=== PATIENT | female | born 1995 | race Caucasian/White ===

== ENCOUNTER 2018-07-23 14:25 | Inpatient (IN) | payer OTHER ==
[~2018-07-23 14:25] MED LIST: OXYTOCIN 30 UNITS/LR 500 ML BAG IV
[2018-07-23] MEDS ORDERED: MISOPROSTOL 200 MCG TAB PR ×3 (15:00→21:30)
[2018-07-23] MEDS ORDERED: LIDOCAINE 1% (MPF) 30 ML INJ INJ (15:00)
[2018-07-23] MEDS ORDERED: IBUPROFEN 600 MG TAB PO (15:00)
[2018-07-23] MEDS ORDERED: METHYLERGONOVINE 0.2 MG INJ IM ×3 (15:00→21:30)
[2018-07-23] MEDS ORDERED: CARBOPROST 250 MCG INJ IM ×3 (15:00→21:30)
[2018-07-23] MEDS ORDERED: OXYTOCIN 30 UNITS/LR 500 ML IV ×5 (15:00→21:30)
[2018-07-23] MEDS: MISOPROSTOL 50 MCG CAPSULE VAG (15:00)
[2018-07-23] MEDS: LACTATED RINGER'S 1,000 ML IV ×3 (16:02→22:49)
[2018-07-23] MEDS: OXYTOCIN 30 UNITS/LR 500 ML IV ×2 (16:27→21:19)
[2018-07-23 16:48] LABS: ADD MAN DIFF? NO
[2018-07-23 16:52] LABS: BASOPHILS % 0.2 % (0.0-2.0); EOSINOPHILS # 0.1 10^3/ul (0.0-0.5); EOSINOPHILS % 0.8 % (0.0-7.0); HEMOGLOBIN 11.7 g/dl (12.0-16.0); LYMPHOCYTES # 1.9 10^3/ul (0.8-2.9); LYMPHOCYTES % 20.1 % (15.0-51.0); MEAN CORPUSCULAR HEMOGLOBIN 32.3 pg (29.0-33.0); MEAN CORPUSCULAR HGB CONC 34.4 g/dl (32.0-37.0); MEAN CORPUSCULAR VOLUME 93.9 fl (82.0-101.0); MEAN PLATELET VOLUME 12.2 fl (7.4-10.4); MONOCYTE # 0.8 10^3/ul (0.3-0.9); MONOCYTES % 7.8 % (0.0-11.0); NEUTROPHIL # 6.8 10^3/ul (1.6-7.5); NEUTROPHILS % 70.8 % (39.0-77.0); PLATELET COUNT 189 10^3/UL (140-415); RED BLOOD COUNT 3.62 10^6/ul (4.20-5.40); RED CELL DISTRIBUTION WIDTH 12.7 % (11.5-14.5)
[2018-07-23 16:52] LABS: WHITE BLOOD COUNT 9.7 10^3/ul (4.8-10.8)
[2018-07-23 17:12] LABS: INR 0.89; PROTIME 12.1 Sec (11.9-14.9); PT RATIO 0.9
[2018-07-23 17:43] LABS: HEPATITIS B SURFACE ANTIGEN NEGATIVE (NEGATIVE)
[2018-07-23 18:15] LABS: AMPHETAMINE/METHAMPHETAMINE Negative (NEGATIVE); BARBITURATES Negative (NEGATIVE); BENZODIAZEPINES Negative (NEGATIVE); CANNABINOIDS Negative (NEGATIVE); COCAINE Negative (NEGATIVE); OPIATES Negative (NEGATIVE)
[2018-07-23] MEDS ORDERED: OXYTOCIN 10 UNIT INJ (20:04)
[2018-07-23] MEDS ORDERED: ONDANSETRON 4 MG INJ (20:04)
[2018-07-23] MEDS ORDERED: morphine SULFATE/PF (10 MG/10 ML) INJ (20:04)
[2018-07-23] MEDS ORDERED: LANOLIN HPA 1 PKT TOP (21:30)
[2018-07-23] MEDS ORDERED: DIPHENHYDRAMINE 50 MG INJ IV (21:30)
[2018-07-23] MEDS ORDERED: ONDANSETRON 4 MG INJ IV (21:30)
[2018-07-23] MEDS ORDERED: NALOXONE (0.4 MG/ML) INJ IV (21:30)
[2018-07-23] MEDS ORDERED: METHYLERGONOVINE 0.2 MG TAB PO (21:30)
[2018-07-23] MEDS: KETOROLAC 30 MG INJ IV (22:28)
[2018-07-23] MEDS: CEFAZOLIN 2 GM/50 ML (PMX) 50 ML IVPB (22:50)
[2018-07-23] MEDS: morphine 4 MG/ML VIAL IV (23:42)
[2018-07-24] MEDS: CEFAZOLIN 2 GM/50 ML (PMX) 50 ML IVPB (01:31)
[2018-07-24] MEDS: morphine 4 MG/ML VIAL IV ×2 (02:27→08:38)
[2018-07-24] MEDS: KETOROLAC 30 MG INJ IV ×3 (04:29→18:22)
[2018-07-24 08:25] LABS: ADD MAN DIFF? NO
[2018-07-24] MEDS: SENNA/DOCUSATE NA (8.6MG/50MG) TAB PO ×2 (08:37→21:00)
[2018-07-24 08:38] LABS: WHITE BLOOD COUNT 9.7 10^3/ul (4.8-10.8)
[2018-07-24 08:38] LABS: BASOPHILS % 0.1 % (0.0-2.0); EOSINOPHILS % 0.3 % (0.0-7.0); HEMATOCRIT 32.4 % (37.0-47.0); HEMOGLOBIN 11.1 g/dl (12.0-16.0); LYMPHOCYTES # 1.2 10^3/ul (0.8-2.9); LYMPHOCYTES % 11.8 % (15.0-51.0); MEAN CORPUSCULAR HEMOGLOBIN 32.8 pg (29.0-33.0); MEAN CORPUSCULAR HGB CONC 34.3 g/dl (32.0-37.0); MEAN CORPUSCULAR VOLUME 95.9 fl (82.0-101.0); MEAN PLATELET VOLUME 12.4 fl (7.4-10.4); MONOCYTE # 0.6 10^3/ul (0.3-0.9); MONOCYTES % 5.8 % (0.0-11.0); NEUTROPHIL # 7.9 10^3/ul (1.6-7.5); NEUTROPHILS % 81.8 % (39.0-77.0); PLATELET COUNT 163 10^3/UL (140-415); RED BLOOD COUNT 3.38 10^6/ul (4.20-5.40); RED CELL DISTRIBUTION WIDTH 12.6 % (11.5-14.5)
[2018-07-24 09:08] LABS: ANION GAP 5 (5-13); BLOOD UREA NITROGEN 8 mg/dl (7-20); CALCIUM 8.6 mg/dl (8.4-10.2); CARBON DIOXIDE 23 mmol/L (21-31); CHLORIDE 106 mmol/L (97-110); CREATININE 0.69 mg/dl (0.44-1.00); Estimated GFR > 60 mL/min (>60); GLUCOSE 91 mg/dl (70-220); POTASSIUM 4.4 mmol/L (3.5-5.1); SODIUM 134 mmol/L (135-144)
[2018-07-24] MEDS: LACTATED RINGER'S 1,000 ML IV ×3 (10:42→18:57)
[2018-07-24] MEDS ORDERED: MAGNESIUM HYDROXIDE 30ML CUP PO (15:00)
[2018-07-24] MEDS: MAGNESIUM HYDROXIDE 30ML CUP PO (15:48)
[2018-07-24] MEDS: METHADONE 10 MG TAB PO (17:03)
[2018-07-24 23:20] LABS: RAPID PLASMA REAGIN NONREACTIVE (NR)
[2018-07-25] MEDS: KETOROLAC 30 MG INJ IV ×2 (00:17→06:13)
[2018-07-25] MEDS: SENNA/DOCUSATE NA (8.6MG/50MG) TAB PO ×2 (08:57→20:40)
[2018-07-25] MEDS: METHADONE 10 MG TAB PO (08:58)
[2018-07-25] MEDS: IBUPROFEN 800 MG TAB PO (13:54)
[2018-07-25] MEDS ORDERED: BISACODYL 10 MG SUPP PR (17:00)
[2018-07-25] MEDS: BISACODYL 10 MG SUPP PR ×2 (17:17→17:48)
[2018-07-25] MEDS: MAGNESIUM HYDROXIDE 30ML CUP PO (17:17)
[2018-07-25] MEDS: HYDROCODONE/APAP (5/325) TAB PO (20:40)
[2018-07-26] MEDS: IBUPROFEN 800 MG TAB PO ×2 (00:53→13:17)
[2018-07-26 07:46] LABS: ADD MAN DIFF? NO
[2018-07-26 07:53] LABS: BASOPHILS % 0.4 % (0.0-2.0); EOSINOPHILS # 0.2 10^3/ul (0.0-0.5); EOSINOPHILS % 1.4 % (0.0-7.0); HEMATOCRIT 33.2 % (37.0-47.0); HEMOGLOBIN 11.1 g/dl (12.0-16.0); LYMPHOCYTES # 1.7 10^3/ul (0.8-2.9); LYMPHOCYTES % 15.9 % (15.0-51.0); MEAN CORPUSCULAR HEMOGLOBIN 32.9 pg (29.0-33.0); MEAN CORPUSCULAR HGB CONC 33.4 g/dl (32.0-37.0); MEAN CORPUSCULAR VOLUME 98.5 fl (82.0-101.0); MEAN PLATELET VOLUME 11.6 fl (7.4-10.4); MONOCYTE # 0.9 10^3/ul (0.3-0.9); MONOCYTES % 8.4 % (0.0-11.0); NEUTROPHIL # 7.7 10^3/ul (1.6-7.5); NEUTROPHILS % 73.4 % (39.0-77.0); PLATELET COUNT 222 10^3/UL (140-415); RED BLOOD COUNT 3.37 10^6/ul (4.20-5.40); RED CELL DISTRIBUTION WIDTH 13.1 % (11.5-14.5)
[2018-07-26 07:53] LABS: WHITE BLOOD COUNT 10.5 10^3/ul (4.8-10.8)
[2018-07-26] MEDS: HYDROCODONE/APAP (5/325) TAB PO ×2 (07:59→17:58)
[2018-07-26] MEDS ORDERED: DIPHTH/TET/ACEL PERTUSS (ADULT) 0.5 ML VIAL IM* (09:00)
[2018-07-26] MEDS ORDERED: MEASLES,MUMPS,RUBELLA VACCINE INJ SC* (09:00)
[2018-07-26] MEDS: METHADONE 10 MG TAB PO (10:29)
[2018-07-26] MEDS: SENNA/DOCUSATE NA (8.6MG/50MG) TAB PO (10:29)
== END 2018-07-26 18:05 | disposition home or self-care (01) | DRG 788 ==
LOC: OBT 14:25 → L-D 14:31 → PP1 23:59
PROC: 10D00Z1 Extraction of Products of Conception, Low, Open Approach (ICD-10-PCS; principal; 2018-07-23 20:00)
DX: O36.63X0 Maternal care for excessive fetal growth, third trimester, not applicable or unspecified (principal); O69.1XX0 Labor and delivery complicated by cord around neck, with compression, not applicable or unspecified; Z3A.40 40 weeks gestation of pregnancy; Z37.0 Single live birth
CPT/HCPCS: 76815; 76818; 80048; 80307; 85025; 85610; 85730; 86592; 86850; 86900; 86901; 87340; 99464